=== PATIENT | male | born 1940 | race Caucasian/White ===

== ENCOUNTER 2017-01-11 16:32 | Emergency (ER) | payer OTHER ==
[~2017-01-11] VITALS: Ht 170.2 cm; Wt 80.0 kg
[~2017-01-11 16:32] MED LIST: LEVO750T25 PO; TAMS0.4C2 PO
[2017-01-11 16:38] VITALS: Ht 170.2 cm; Wt 80.0 kg
--- NOTE | 2017-01-11 18:33 | ERD ---
ER Documentation Chief Complaint Date/Time DATE: 01/11/17 TIME: 18:30 Chief Complaint urinary catheter malfunction; lower abdominal pain HPI Patient is a 76-year-old male with hypertension who presents with a suprapubic catheter which has pulled out. He says "a bubble popped". It is an 18 [place]i catheter. It happened 1 hour prior. He has no other complaints. Upon review of old medical records the patient one previous visit to the ER in 2016. He does not know the name of his primary doctor or urologist. ROS All systems reviewed and are negative except as per history of present illness. Medications Home Meds Active Scripts Levofloxacin* (Levaquin*) 750 Mg Tablet, 750 MG PO DAILY for 5 Days, TAB Prov:LORENE ALMONTE MD 03/29/16 Reported Medications Tamsulosin Hcl* (Tamsulosin Hcl*) 0.4 Mg Cap.er.24h, 0.4 MG PO DAILY, CAP 03/29/16 Allergies Allergies: Coded Allergies: No Known Allergy (Unverified , 03/29/16) PMhx/Soc History of Surgery: Yes (Hernia, Hemmorhoids, Suprapubic Urinary Catheter) Anesthesia Reaction: No Hx Neurological Disorder: No Hx Respiratory Disorders: No Hx Cardiac Disorders: No Hx Psychiatric Problems: No Hx Miscellaneous Medical Probl: Yes (BPH) Hx Alcohol Use: No Hx Substance Use: No Hx Tobacco Use: Yes Smoking Status: Current every day smoker FmHx Family History: No diabetes Physical Exam Vitals Vital Signs Date Time Temp Pulse Resp B/P Pulse Ox O2 Delivery O2 Flow Rate FiO2 01/11/17 16:38 98.0 98 19 136/71 100 Physical Exam Const: No acute distress Head: Atraumatic Eyes: Normal Conjunctiva ENT: Normal External Ears, Nose and Mouth. Neck: Full range of motion..~ No meningismus. Resp: Clear to auscultation bilaterally Cardio: Regular rate and rhythm, no murmurs Abd: Soft, there is a suprapubic catheter in place but the balloon has popped Skin: No petechiae or rashes Back: No midline or flank tenderness Ext: No cyanosis, or edema Neur: Awake and alert Psych: Normal Mood and Affect Procedures/MDM Suprapubic catheter replacement: Patient was prepped and draped in a sterile fashion. I cleaned the area around the old suprapubic catheter and removed the suprapubic catheter. I was able to place a suprapubic 18 A[place]i catheter without difficulty. The balloon was inflated without resistance and clear yellow urine flowed without difficulty. The patient tolerated the entire procedure. Patient is a 76-year-old male with a nonfunctioning suprapubic catheter as the balloon had popped. I placed a new suprapubic catheter and the patient tolerated the entire procedure. He does not require any further workup or admission the hospital at this time. I believe outpatient management is appropriate. He can follow-up with his primary doctor within 1 week. Departure Diagnosis: Primary Impression: Suprapubic catheter dysfunction Encounter type: initial encounter Qualified Code: T83.010A - Suprapubic catheter dysfunction, initial encounter Condition: Fair Patient Instructions: Caring for Your Suprapubic Catheter Referrals: Your urologist Additional Instructions: SPECIALIST: YOU HAVE A MEDICAL CONDITION WHICH REQUIRES YOU TO SEE A SPECIALIST WITHIN THE NEXT 1-2 DAYS. PLEASE FOLLOW UP WITH YOUR PRIMARY PHYSICIAN FOR REFFERAL.IF YOU DO NOT HAVE A PRIMARY CARE PHYSICIAN AND/OR YOU CAN NOT AFFORD TO SEE A PHYSICIAN THE FOLLOWING RESOURCES HAVE BEEN SUPPLIED TO YOU. IT IS YOUR RESPONSIBILITY TO BE SEEN BY THE SPECIALIST EDIN KOVACS MD Jan 11, 2017 18:33
== END 2017-01-11 17:33 | disposition home or self-care (01) ==
LOC: E/R 16:32
DX: T83.010A Breakdown (mechanical) of cystostomy catheter, initial encounter (principal); F17.210 Nicotine dependence, cigarettes, uncomplicated; Y73.8 Miscellaneous gastroenterology and urology devices associated with adverse incidents, not elsewhere classified
CPT/HCPCS: 99282